=== PATIENT | female | born 1975 | race Caucasian/White ===

== ENCOUNTER → 2024-11-19 09:58 | Outpatient (REF) | payer BC, SELFPAY | LOC: HWRAD 09:58 | PROVIDERS: ATTENDING PHYSICIAN Family Medicine | DX: M54.6 Pain in thoracic spine (principal); R59.1 Generalized enlarged lymph nodes | CPT/HCPCS: 72072; 76536 ==

== ENCOUNTER → 2025-02-16 10:35 | Outpatient (REF) | payer BC, SELFPAY | LOC: PAVMRI 10:35 | PROVIDERS: ATTENDING PHYSICIAN Family Medicine | DX: M25.551 Pain in right hip (principal) | CPT/HCPCS: 73721 ==

== ENCOUNTER → 2025-02-17 13:24 | Outpatient (REF) | payer BC, SELFPAY | LOC: MRI 3T 13:24 | PROVIDERS: ATTENDING PHYSICIAN Family Medicine | DX: M54.17 Radiculopathy, lumbosacral region (principal) | CPT/HCPCS: 72148 ==